=== PATIENT | male | born 1955 | race Caucasian/White ===

== ENCOUNTER → 2018-05-18 | Outpatient (CLI) | payer OTHER ==
[2014-05-02 15:00] VITALS: BP 116/77
[~2018-05-18] MED LIST: CRESTOR5 MG PO; FERR325T14 PO; IOHEXOL 240 MG/ML 50ML VIAL. PO ONE; IOHEXOL 300 MG/ML 100ML VIAL. IV ONE; MELO15TA23 PO; OMEP40CA5 PO; RANI300C PO; WARF-78 PO; WARF6TAB49 PO
--- NOTE | 2018-05-18 10:14 | RAD ---
EXAM: Abdomen and pelvis CT without and with intravenous contrast. HISTORY: Pain. TECHNIQUE: Computed tomographic images of the abdomen and pelvis were obtained prior to and following the administration of 75 cc Omnipaque 300 intravenous contrast. Multiplanar reformatting was performed. *One or more of the following individualized dose reduction techniques were utilized for this examination: 1. Automated exposure control. 2. Adjustment of the mA and/or kV according to patient size. 3. Use of iterative reconstruction technique. COMPARISON: None. FINDINGS: Evaluation of the lower thorax is unremarkable. No hepatic lesion is seen. The gallbladder, pancreas, and adrenal glands are unremarkable. There are splenules adjacent to an otherwise unremarkable spleen. There is no nephro ureterolithiasis. No solid or cystic renal lesion is seen. There is no hydronephrosis. There is no appendicitis. No abnormally thickened or dilated loop of bowel is seen. There are few sigmoid diverticula. There is slight urinary bladder wall thickening likely due to underdistention. The prostate is slightly prominent in size. There is increased fat within the bilateral inguinal canals. There is no lymphadenopathy. There is no suspicious osseous lesion. There are degenerative changes throughout the thoracic and lumbar spine. There are small areas of lucency within the L5 vertebral body, likely due to small hemangiomas. There are suspected degenerative subchondral cyst formation or early avascular necrosis involving the left femoral head. No convincing suspicious osseous lesion is seen. IMPRESSION: 1. No acute abdominal or pelvic finding. 2. Few sigmoid diverticula. There is no evidence of diverticulitis. Electronically signed by: Mera Kidd MD (05/18/2018 10:10 AM) [email or web address]
== END | disposition home or self-care (01) ==
LOC: CT 07:56
PROVIDERS: ATTEND Internal Medicine
DX: K57.30 Diverticulosis of large intestine without perforation or abscess without bleeding (principal)
CPT/HCPCS: 74177; Q9966; Q9967

== ENCOUNTER → 2018-09-28 | Outpatient (CLI) | payer OTHER ==
[2014-05-02 15:00] VITALS: BP 116/77
[~2018-09-28] MED LIST changes: -IOHEXOL 240 MG/ML 50ML VIAL. PO ONE; -IOHEXOL 300 MG/ML 100ML VIAL. IV ONE
--- NOTE | 2018-09-28 11:26 | EKG ---
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
== END | disposition home or self-care (01) ==
LOC: LAB 11:06
PROVIDERS: ATTEND Urology
DX: C61 Malignant neoplasm of prostate (principal)
CPT/HCPCS: 93005

== ENCOUNTER → 2019-05-04 | Outpatient (CLI) | payer OTHER ==
[2014-05-02 15:00] VITALS: BP 116/77
[~2019-05-04] MED LIST changes: +OMEP40CA45 PO; -OMEP40CA5 PO
--- NOTE | 2019-05-04 12:40 | KCIC ---
MRI Cervical Spine Without Contrast History: Cervical radiculopathy, chronic neck pain, left upper extremity pain and numbness getting worse the last 6-8 months Technique: Multiplanar, multi sequential noncontrast MR imaging was performed of the cervical spine. Comparison: June 13, 2010 Findings: There is some motion degradation. Cervical cord caliber is within normal limits without defined or expansile signal abnormality. Cervical vertebral body stature is overall maintained. There is negligible anterior spondylolisthesis C7-T1. There is [id number] degenerative disc disease at C6-7 as seen previously. There is posterior annular tear at C4-5 now present. There is some edema associated with the left C5-C6 facet articulation likely reactive/degenerative in etiology. There is some fluid associated with the left lateral mass articulation at C1-C2. C2-C3: Spinal canal and right neural foramen are adequate. Facet and uncovertebral degenerative change contributes to [id number]-[id number] of the left neural foramen. C3-C4: There is fairly severe left facet degenerative change. There is mild right uncovertebral degenerative change. Spinal canal is overall adequate. There is moderate to severe right and at least moderate left neural foramina compromise. C4-C5: There is severe left facet hypertrophic change. Spinal canal is adequate. Right neural foramen is not significantly narrowed, [id number] narrowing of the left neural foramen. C5-C6: There is again minimal disc osteophyte complex slightly indenting the ventral thecal sac greater in the left lateral recess. Central canal is again narrowed to about 8 mm with a somewhat greater degree of left lateral recess stenosis. There is bilateral facet degenerative change. There is mild right uncovertebral degenerative change. There is again moderate to severe narrowing of the right neural foramen, left neural foramen not significantly narrowed. C6-C7: There is again minimal disc osteophyte complex slightly indenting the ventral thecal sac greater in the left lateral recess. Central canal is minimally narrowed about 9 mm with a somewhat greater degree of left lateral recess stenosis. There is left uncovertebral degenerative change, also bilateral facet degenerative change. Right neural foramen is adequate. There is again fairly severe narrowing of the left neural foramen. C7-T1: There is bilateral facet hypertrophic change. Spinal canal and right neural foramen are adequate. There is likely moderate narrowing of the left neural foramen from posteriorly by facet. Impression: 1. There is spinal stenosis about 8 mm at C5-6 and to a somewhat lesser degree at C6-7, somewhat greater degree of left lateral recess stenosis at these levels as described. 2. There is degenerative disc disease greatest at C6-7. There is mild spondylosis. 3. Facet and uncovertebral degenerative change contributes to multilevel neural foramina compromise as stated most notable right greater than left at C3-C4, on right at C5-C6, on the left at C6-7, somewhat lesser degree of narrowing on the left at C7-T1, C4-C5, and C2-C3. 4. There is some fluid associated with the left C1-2 lateral mass articulation which may be on a degenerative basis, also some edema associated with the left C4-5 facet articulation more likely be reactive/degenerative in etiology. Electronically signed by: Marcelo Quiñones MD (05/04/2019 12:37 PM) [facility]
== END | disposition home or self-care (01) ==
LOC: KCIC MRI 10:35
PROVIDERS: ATTEND Internal Medicine
DX: M43.13 Spondylolisthesis, cervicothoracic region (principal); M48.03 Spinal stenosis, cervicothoracic region; M50.323 Other cervical disc degeneration at C6-C7 level; M25.78 Osteophyte, vertebrae; M47.22 Other spondylosis with radiculopathy, cervical region
CPT/HCPCS: 72141

== ENCOUNTER → 2019-06-15 | Outpatient (CLI) | payer OTHER ==
[2014-05-02 15:00] VITALS: BP 116/77
[~2019-06-15] MED LIST changes: +ACET325T9 PO; +ATOR20TA58 PO; +KRIL1CAP23 PO; +MELO7.5T29 PO; +NAPR220T70 PO
--- NOTE | 2019-06-15 12:39 | PAIN ---
DATE OF SERVICE: 06/15/2019 INITIAL CONSULTATION FOR PAIN CLINIC CHIEF COMPLAINT: Neck and left upper extremity pain. 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 The patient reports pain in the neck is burning, stabbing, sharp and constant, becoming more noticeable, worse with reaching his left hand over his head, worse with repetitive motions, left arm. He is having some difficulty with dropping items with the left hand, especially when it is tingling and some fine motor movements. The patient reports it awakens him from sleep several times a night, does not affect his bowel or bladder control, but can affect his ability to walk. He also has some low back pain and it has been painful as well. The patient reports that he has had chiropractic treatment in the past, exercise, which he is currently doing and has had some epidural injections in his low back, but not for his neck. The patient started hydrocodone as well as ibuprofen. Ibuprofen does decrease the pain significantly, hydrocodone is marginally. The patient reports no loss of motor function, but significant fatigability of the left upper extremity with repetitive motions. No pain on the right side. The patient rates his disability from 0-10, 10 being the worst, is a 7 with family home responsibilities, recreation, social activity, 8 with occupation, 5 with sexual behavior and self-care and 3 with life support activities. The patient did have an MRI scan of cervical spine showing spinal stenosis at C5-C6 and somewhat lesser degree at C6-C7 with greater degree of left lateral recess stenosis at these levels with degenerative disk disease, greatest at C6-C7 with mild spondylosis. PAST MEDICAL HISTORY: Significant for severe arthritis, prostate cancer 2019. PREVIOUS SURGERY: Include prostatectomy, left knee replacement in 2015 and tonsillectomy at 10 or 11 years old. CURRENT MEDICATIONS: Include atorvastatin, Tylenol, Aleve, Krill oil, and meloxicam. ALLERGIES: THE PATIENT IS ALLERGIC TO SULFA. FAMILY HISTORY: Significant for no major medical problems or conditions that he is aware of. SOCIAL HISTORY: The patient is retired, does not drink alcohol, does not smoke, does not use any illegal, illicit or recreational drugs. 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 REVIEW OF SYSTEMS: The patient's review of systems is positive for those items mentioned in history of present illness. All systems reviewed and otherwise negative. It is complete, full and well documented on the patient's chart. PHYSICAL EXAMINATION: VITAL SIGNS: The patient's blood pressure 133/88, pulse 73, respirations 18, temperature 99.1 degrees Fahrenheit, height is 5 feet 10 inches, weight is 217 pounds. GENERAL: The patient is awake, alert, oriented, appropriate, very pleasant demeanor. HEENT: Head shows normocephalic, atraumatic. Extraocular movements are intact and symmetrical. Oral cavity: Mucous membranes moist and pink. Dentition is intact. NECK: Shows anterior throat supple without palpable lymphadenopathy noted. Swallow reflex symmetrical. CHEST: Shows normal on inspection. Breath sounds are clear bilaterally. HEART: Shows S1, S2 clear. No murmurs auscultated. ABDOMEN: Soft, nontender, nondistended. BACK: Shows spine grossly in the midline. Normal appearing cervical lordotic curvature, thoracic kyphotic curvature and lumbar lordotic curvature. Cervical paraspinous muscle shows symmetrical on inspection, on palpation shows some mild tenderness in the inferior aspect of the cervical paraspinous musculature, more on the left than the right into the superior medial and lateral trapezius as well, but without specific trigger points, but very much more tender on the left than the right. The patient has full rotational motion of cervical spine, both laterally greater than 45 degrees right and left as full extension, full forward flexion without significant increase in pain. The patient's upper extremities show deep tendon reflexes 2+ in the biceps, triceps tendons. Motor exam is strong with test puller strength rated at 5/5 on the right, 4/5 on the left. Bicep and tricep flexion likewise 4/5 left, 5/5 on the right. Peripheral pulses are 2+ radial distribution. No peripheral edema is noted bilaterally. Shoulder shrug is strong and intact without loss of strength on resistance with some moderate tenderness on the left side. It is true with abduction of the shoulder to 90 degrees with resistance as well. No loss of strength. There is significant pain in the left shoulder radiating to the left lateral and anterior deltoid and into the biceps on the left. Peripheral pulses are 2+ radial distribution. No peripheral edema is noted bilaterally. The patient's low back shows some moderate tenderness with palpation, but symmetrical on inspection with paraspinous musculature, but diffusely tender throughout the upper, middle and lower distribution of paraspinous muscles, but with good rotational motion both laterally as well as extension and flexion. EXTREMITIES: Lower extremities show deep tendon reflexes 2+ in the patellar, 1+ tendo-calcaneus tendons. Motor exam is strong with 5/5 dorsiflexion, extension, quadriceps and hamstring flexion. Peripheral pulses are 1+ posterior tibia. No peripheral edema is noted. The patient is able to stand, stand on his toes without difficulty or loss of balance, walks with a normal-appearing gait, not using any assistive devices to ambulate. SKIN: Shows warm and dry, good turgor. No edema. No sores, rashes or bruising throughout. IMPRESSION: 1. This is a 64-year-old male with long history of pain at the base of the neck, left upper extremity in a radicular fashion, worse over the past 6 months or so following a C6-C7 dermatomal distribution. 2. MRI scan of cervical spine as noted. 3. Arthritis. 4. History of prostate cancer. PLAN: Options were discussed with the patient including conservative medical managements, physical therapies and interventional techniques. We discussed a cervical epidural steroid injection using description as well as anatomical models to describe the procedure. The patient would like to wait for preauthorization with his insurance provider. Once this is obtained, we will have him return for a translaminar C6-C7 cervical epidural steroid injection for his left-sided C6-C7 radiculopathy. In the meantime, we will try Medrol Dosepak. The patient was given instruction as well as side effects to be aware of with the medication. The patient also asks for a refill prescription of Motrin 600 mg. We will supply with 1 month prescription as well with one refill. Instructions side effects to be aware of, discussed each of the medications. FOLLOWUP: The patient will follow up as scheduled. MEGHAN JADE MD DR: ELLIE/mo JOB#: [id number] / [id number]
== END | disposition home or self-care (01) ==
LOC: PNCL 10:59
PROVIDERS: ATTEND Anesthesiology
DX: M50.123 Cervical disc disorder at C6-C7 level with radiculopathy (principal); M48.02 Spinal stenosis, cervical region; M19.90 Unspecified osteoarthritis, unspecified site; Z85.46 Personal history of malignant neoplasm of prostate; Z88.2 Allergy status to sulfonamides; Z96.652 Presence of left artificial knee joint
CPT/HCPCS: G0463

== ENCOUNTER → 2019-06-29 | Outpatient (CLI) | payer OTHER ==
[2014-05-02 15:00] VITALS: BP 116/77
[~2019-06-29] MED LIST changes: +IOHEXOL 180 MG/ML 10 ML VIAL. ONE; +methylPREDNISolone ACETATE 40 MG/ML VIAL. ONE; +methylPREDNISolone ACETATE 80 MG/ML VIAL. ONE
--- NOTE | 2019-06-29 12:41 | PAIN ---
DATE OF SERVICE: 06/29/2019 PROGRESS NOTE FOR PAIN CLINIC DIAGNOSES: Cervical radiculopathy with cervical degenerative disk disease and cervical spinal stenosis. HISTORY OF PRESENT ILLNESS: The patient is a 64-year-old male who returns for followup status post initial evaluation and preauthorization for cervical epidural steroid injection. The patient has obtained that now and would like to proceed. Reports there is still pain in the base of the neck and left shoulder, upper extremity as it was previously. The patient reports it is an 8 on a scale of 10 at its worst over the past week, 5 on average, 4 at its least and is a 5 today. The patient reports the Medrol Dosepak we tried after last visit did help significantly and he has been sleeping better since that was started. The patient reports there is still pain in the base of the neck, left shoulder, left upper extremity, mostly in the posterior tricep, tingling, burning and aching, worse with activity, reaching and repetitive motions. The patient reports sleeping better, however, after the Medrol Dosepak. No new motor or sensory deficits. No new bowel or bladder incontinence or other complaints. PHYSICAL EXAMINATION: VITAL SIGNS: The patient's blood pressure is 121/79, pulse 79, respirations 18, temperature 98.1 degrees Fahrenheit, height is 5 feet 10 inches, weight is 217 pounds. GENERAL: The patient is awake, alert, oriented, appropriate, very pleasant demeanor. HEENT: Shows normocephalic, atraumatic. Extraocular movements are intact and symmetrical. Oral cavity: Mucous membranes moist and pink. Dentition is intact. NECK: Shows anterior throat supple without palpable lymphadenopathy noted. Swallow reflex symmetrical. CHEST: Shows normal on inspection. Breath sounds are clear to auscultation bilaterally. HEART: Shows S1, S2 clear. No murmurs auscultated. ABDOMEN: Soft, nontender, nondistended. No palpable organomegaly is noted. No rebound or guarding demonstrated. BACK: Shows spine grossly in the midline. Cervical paraspinous muscle shows symmetrical on inspection, on palpation shows some mild tenderness diffusely in the inferior aspect of the cervical paraspinous musculature, more on the left than the right, into the superior medial trapezius on the left as well, but without radiation. The patient has good rotational motion of cervical spine laterally as well as extension and flexion without significant increase in pain. EXTREMITIES: The patient's upper extremities show deep tendon reflexes 2+ in the biceps and triceps tendons. Motor exam is approximately 4 on a scale of 5 on the left with environmental advisor strength. Bicep and tricep flexion is 5/5 on the right. Peripheral pulses are 2+ radial distribution. No peripheral edema is noted bilaterally. PLAN: Options were discussed with the patient. The patient's old chart was reviewed as his current medication regimen updated. Current review of systems updated today as well. We will proceed with a cervical epidural steroid injection today with fluoroscopic guidance. Risks were again discussed including, but not limited to bleeding, infection, possibility of epidural hematoma, subsequent neurological compromise, dural puncture, headaches, spinal cord and/or nerve damage, side effects of steroid medication and poor results regarding pain control. The patient understands and wished to proceed. The patient will return to clinic in approximately 2 weeks for followup. She was counseled as to return appointment, activity level and side effects to be aware of. DIAGNOSES: Cervical radiculopathy with cervical degenerative disk disease and cervical spinal stenosis. PROCEDURE: Cervical epidural steroid injection, translaminar approach C6-C7 level using Chloe fluoroscopic guidance under sterile prep and drape using local anesthetic. MEDICATION INJECTED: A total of 120 mg Depo-Medrol plus 5 mL of preservative-free normal saline and 2 mL of contrast. CONDITION AT DISCHARGE: Stable. The patient tolerated the procedure well, had no complications. MEGHAN JADE MD DR: ELLIE/mo JOB#: [id number] / [id number]
== END ==
LOC: PNCL 10:07
PROVIDERS: ATTEND Anesthesiology
DX: M50.123 Cervical disc disorder at C6-C7 level with radiculopathy (principal); M48.02 Spinal stenosis, cervical region
CPT/HCPCS: 62321; J1030; J1040; Q9965

== ENCOUNTER → 2019-10-05 | Outpatient (CLI) | payer OTHER ==
[2014-05-02 15:00] VITALS: BP 116/77
--- NOTE | 2019-10-05 12:56 | PAIN ---
DATE OF SERVICE: 10/05/2019 PROGRESS NOTE FOR PAIN CLINIC DIAGNOSES: Cervical radiculopathy with cervical degenerative disk disease and cervical spinal stenosis. HISTORY OF PRESENT ILLNESS: The patient is a 64-year-old male who returns for followup status post cervical epidural steroid injection x 1 on 06/29/2019, patient did very well with about 90% improvement for 2 months following the injection. The patient reports the pain has again returned over the past several weeks in the base of the neck and left upper extremity as it was previously. The patient reports it is tingling and burning pain. It is radiating to left arm, mostly in the lateral and anterior aspect of the shoulder, lateral aspect into the forearm, posterior and anterior forearm as well as into the wrist. The patient reports the pain is a 10 on a scale of 10 at its worse over the past week, 8 on average, 5 at its least and is a 5 today. The patient reports no new motor or sensory deficits. Initially, he is doing much better, sleeping better than he has, he reports, in years after the injections. Increasing his activity at home and at work, doing household activities with greater ease and comfort and traveling with greater ease and driving the car with his left arm with greater ease. The patient reports no new motor or sensory deficits, no new bowel or bladder incontinence or other complaints. PHYSICAL EXAMINATION: VITAL SIGNS: The patient's blood pressure is 142/93, temperature is 98.9 degrees Fahrenheit, respirations 18, pulse is 71, height is 5 feet 10 inches, weight is 214 pounds. GENERAL: The patient is awake, alert, oriented, appropriate, very pleasant demeanor. HEENT: Shows normocephalic, atraumatic. Extraocular movements are intact and symmetrical. Oral cavity shows mucous membranes moist and pink. Dentition is intact. NECK: Shows anterior throat supple without palpable lymphadenopathy noted. Swallow reflex symmetrical. CHEST: Shows normal on inspection. Breath sounds are clear to auscultation bilaterally. HEART: Shows S1, S2 clear. No murmurs auscultated. ABDOMEN: Soft, nontender, nondistended. No palpable organomegaly is noted. No rebound or guarding demonstrated. BACK: Shows spine grossly in the midline. Normal appearing thoracic kyphosis and cervical lordotic curvature. Cervical paraspinous muscle shows symmetrical on inspection, on palpation shows some moderate tenderness diffusely bilaterally, but only in the inferior aspect of the cervical paraspinous muscles into the superior medial trapezius, more on the left than the right, but without specific trigger points, atrophy or hypertrophy. The patient shows full rotational motion of cervical spine, both laterally as well as extension and flexion without significant increase in pain. EXTREMITIES: Upper extremities show deep tendon reflexes 2+ in the biceps and triceps tendons. Motor exam is approximately 4 on a scale of 5 with left scrap baller strength and 5/5 on the right, but bicep and tricep flexion is 5/5 and equal. Peripheral pulses are 2+ radial. No peripheral edema bilaterally. Options were discussed with the patient. The patient's old chart was reviewed as his current medication regimen updated. Current review of systems updated today as well and we will proceed with a second in the series cervical epidural steroid injection today with fluoroscopic guidance. Risks were again discussed including, but not limited to bleeding, infection, possibility of epidural hematoma, subsequent neurological compromise, dural puncture, headaches, spinal cord and/or nerve damage, side effects of steroid medication and poor results regarding pain control. The patient understands and wished to proceed. The patient will return to clinic in approximately 2 weeks for followup. He was counseled on return appointment, activity level and side effects to be aware of. DIAGNOSES: Cervical radiculopathy with cervical degenerative disk disease and cervical spinal stenosis. PROCEDURE: Cervical epidural steroid injection, translaminar approach at C6-C7 level using C-arm fluoroscopic guidance under sterile prep and drape using local anesthetic. MEDICATION INJECTED: A total of 120 mg Depo-Medrol plus 5 mL of preservative-free normal saline and 2 mL of contrast. CONDITION AT DISCHARGE: Stable. The patient tolerated procedure well and had no complications. MEGHAN JADE MD DR: ELLIE/mo JOB#: [id number] / [id number]
== END | disposition home or self-care (01) ==
LOC: PNCL 12:00
PROVIDERS: ATTEND Anesthesiology
DX: M50.123 Cervical disc disorder at C6-C7 level with radiculopathy (principal); M48.02 Spinal stenosis, cervical region; Z98.890 Other specified postprocedural states; Z88.1 Allergy status to other antibiotic agents
CPT/HCPCS: 62321; J1030; J1040; Q9965

== ENCOUNTER → 2020-01-31 | Outpatient (CLI) | payer OTHER ==
[2014-05-02 15:00] VITALS: BP 116/77
[~2020-01-31] MED LIST changes: -WARF-78 PO; +WARF5TAB2 PO
--- NOTE | 2020-01-31 14:24 | PDOC ---
Progress Note - Pain Clinic Date of Service: DOS: DATE: 01/31/20 TIME: 14:16 Diagnosis: Dx: Cervical radiculopathy with cervical spinal stenosis and cervical degenerative disc disease History or Present Illness: HPI: 64-year-old male returns follow-up status post cervical epidural straight injections x2. Patient reports approximately 50% improvement overall last injection was October 05, 2019. Patient reports that since that time the pain is beginning to return now over the past few weeks to a month in the base the neck and left upper extremity left deltoid anterior bicep tricep as well as the forearm and thumb and the hand with sudden tingling in the fingers and numbness in the left second and third fingers especially. Patient describes the left upper extremity with more aching tingling becoming more constant and more painful with repetitive motions lifting items reaching over his head with his left arm. Patient describes the pain as a 9 on scale 10 is worst over the past week 7 on average for this least is a 7 today. Patient reports no loss of motor function but significant fatigability in the left upper extremity Physical Exam: VS: Blood pressure is 135/87 pulse 72 respirations 16 temperature is 98.2 F weight is 217 pounds PE: PHYSICAL EXAMINATION: GENERAL: The patient is awake, alert, oriented, appropriate, very pleasant demeanor HEENT: Shows normocephalic, atraumatic. Extraocular movements are intact and symmetrical. Oral cavity: Mucous membranes moist and pink. NECK: Shows anterior throat supple without palpable lymphadenopathy noted. Swallow reflex symmetrical. CHEST: Shows normal on inspection. Breath sounds are clear bilaterally, no rales rhonchi or wheezes auscultated. HEART: Shows S1, S2 clear. No murmurs auscultated. ABDOMEN: Soft, nontender, nondistended. No palpable organomegaly is noted. No rebound or guarding demonstrated. BACK: Shows spine grossly in the midline. Normal-appearing cervical lordotic curvature, neck shows full rotation motion cervical spine both laterally greater than 45 degrees right and left with extension and forward flexion, without significant complaint of pain. There is slightly increased thoracic kyphosis, some minor flattening of the lumbar lordotic curvature. EXTREMITIES: Upper extremities show deep tendon reflexes 2+ in the biceps and triceps tendons. 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 Peripheral pulses are 2+ radial. No peripheral edema is noted bilaterally. Upper extremities are warm and dry to touch, equal in color and appearance. SKIN: Shows warm and dry, good turgor. No edema. No sores, rashes or bruising throughout. Procedure: Procedure: Options were discussed with the patient. Patient will chart was reviewed his his current medication regimen updated current review of systems updated today as well. We will proceed with a third in the series cervical epidural steroid injection today with fluoroscopic guidance. Risks were discussed including but not limited to: Bleeding, infection, possibility of epidural hematoma and subsequent neurological compromise, dural puncture, headaches, spinal cord and/or nerve damage, side effects of steroid medication, and poor results regarding pain control. Patient understands wished to proceed. Patient return to clinic in possibly 2 weeks for follow-up. Patient was counseled as to return appointment activity level and side effects to be aware of. Medication Injected: Med Injected: Procedure cervical epidural steroid injection at the C6-7 level, using local anesthetic under sterile prep and drape using C-arm fluoroscopic guidance under local anesthesia medications injected ; 120 mg Depo-Medrol + 5 mL normal saline and 2 mL contrast; condition at discharge is stable patient tolerated procedure well. and had no complications Condition at Discharge: Condition at Discharge: Condition at discharge stable patient tolerated procedure well had no complications. MEGHAN JADE MD Jan 31, 2020 14:23
== END | disposition home or self-care (01) ==
LOC: PNCL 13:16
PROVIDERS: ATTEND Anesthesiology
DX: M54.12 Radiculopathy, cervical region (principal); M50.323 Other cervical disc degeneration at C6-C7 level; M48.02 Spinal stenosis, cervical region; E78.5 Hyperlipidemia, unspecified; Z88.2 Allergy status to sulfonamides; Z79.899 Other long term (current) drug therapy; Z83.3 Family history of diabetes mellitus
CPT/HCPCS: 62321; J1030; J1040; Q9965; 62323

== ENCOUNTER → 2020-06-03 | Outpatient (CLI) | payer OTHER ==
[2014-05-02 15:00] VITALS: BP 116/77
[~2020-06-03] MED LIST changes: -IOHEXOL 180 MG/ML 10 ML VIAL. ONE; -methylPREDNISolone ACETATE 40 MG/ML VIAL. ONE; -methylPREDNISolone ACETATE 80 MG/ML VIAL. ONE
--- NOTE | 2020-06-03 11:10 | RAD ---
EXAM: Abdomen sonogram. HISTORY: Pain. TECHNIQUE: Sonographic imaging of the abdomen was performed. COMPARISON: 05/18/2018. FINDINGS: The liver is normal in size. There is hepatic steatosis. No focal hepatic lesion is seen. T he gallbladder is unremarkable. The common bile duct is normal in caliber. The kidneys, spleen, aorta and inferior vena cava are unremarkable. The pancreas is partially obscured due to bowel gas. IMPRESSION: 1. Hepatic steatosis. 2. No acute sonographic finding. Electronically signed by: Mera Kidd MD (06/03/2020 11:08 AM) [id number]
== END ==
LOC: US 10:29
PROVIDERS: ATTEND Internal Medicine
DX: K76.0 Fatty (change of) liver, not elsewhere classified (principal)
CPT/HCPCS: 76700